=== PATIENT | male | born 1995 | race African-American/Black ===

== ENCOUNTER 2017-12-06 22:10 | Emergency (ER) | payer MEDICAID ==
[~2017-12-06] VITALS: Ht 180.3 cm; Wt 104.0 kg
[2017-12-06] MEDS ORDERED: MORPHINE SULFATE 4 MG/ML CPJ (NOT FOR IM USE) IV ONE (23:00)
[2017-12-06] MEDS ORDERED: TETANUS, DIPHTHERIA, PERTUSSIS VAC/PF 0.5ML (>7YR OLD) IM ONE (23:00)
[2017-12-06] MEDS ORDERED: KETOROLAC 30MG/ML VIAL IV ONE (23:45)
[2017-12-07 01:40] VITALS: BP 126/78
== END 2017-12-07 01:41 | disposition home or self-care (01) ==
LOC: ER 22:10
DX: S91.301A Unspecified open wound, right foot, initial encounter (principal); F12.10 Cannabis abuse, uncomplicated; Z88.9 Allergy status to unspecified drugs, medicaments and biological substances; W33.01XA Accidental discharge of shotgun, initial encounter; Y93.89 Activity, other specified; Y92.89 Other specified places as the place of occurrence of the external cause; Y99.8 Other external cause status
CPT/HCPCS: 73590; 73620; 90471; 90715; 96374; 96375; 99284; J1885; J2270; Z7610

== ENCOUNTER 2018-04-13 00:07 | Emergency (ER) | payer MEDICAID ==
[~2018-04-13] VITALS: Ht 157.5 cm; Wt 98.9 kg
[2018-04-13] MEDS ORDERED: KETOROLAC 60MG/2ML VIAL IM STA (00:50)
[2018-04-13] MEDS ORDERED: LIDOCAINE HCL 1% 20ML VIAL (Pyxis) INJ INFIL ONE (01:00)
[2018-04-13] MEDS ORDERED: CEFTRIAXONE SODIUM 1 G/VIAL IM ONE (01:00)
[2018-04-13 02:30] VITALS: BP 133/87
== END 2018-04-13 02:31 | disposition home or self-care (01) ==
LOC: ER 00:07
DX: G44.89 Other headache syndrome (principal); K02.9 Dental caries, unspecified; F12.10 Cannabis abuse, uncomplicated
CPT/HCPCS: 96372; 99283; J0696; J1885; J3490

== ENCOUNTER 2019-06-23 17:34 | Emergency (ER) | payer MEDICAID ==
[~2019-06-23] VITALS: Ht 180.3 cm; Wt 105.0 kg
[2019-06-23] MEDS ORDERED: HYDROCODONE/ACETAMINOPHEN 5/325MG TABLET PO ONE (22:15)
[2019-06-23] MEDS ORDERED: KETOROLAC 60MG/2ML VIAL IM ONE (22:15)
[2019-06-24 01:05] VITALS: BP 127/74
== END 2019-06-24 01:07 | disposition home or self-care (01) ==
LOC: ER 17:34
DX: S93.401A Sprain of unspecified ligament of right ankle, initial encounter (principal); X50.1XXA Overexertion from prolonged static or awkward postures, initial encounter; Y93.67 Activity, basketball; Y92.9 Unspecified place or not applicable
CPT/HCPCS: 29515; 73600; 96372; 99283; J1885; Z7610

== ENCOUNTER 2020-09-23 14:37 | Emergency (ER) | payer MEDICAID ==
[~2020-09-23] VITALS: Ht 172.7 cm; Wt 108.0 kg
[2020-09-23] MEDS ORDERED: KETOROLAC 30MG/ML VIAL IM ONE (15:00)
[2020-09-23] MEDS ORDERED: BACITRACIN ZINC OINT UDPKT TOP ONE (16:00)
[2020-09-23] MEDS ORDERED: TETANUS, DIPHTHERIA, PERTUSSIS VAC/PF 0.5ML (>7YR OLD) IM ONE (16:00)
[2020-09-23] MEDS ORDERED: ACET-2708 MT (16:29)
[2020-09-23] MEDS ORDERED: NAPR-1176 MT (16:29)
[2020-09-23 17:19] VITALS: BP 128/88
== END 2020-09-23 17:21 | disposition home or self-care (01) ==
LOC: ER 14:37
DX: S93.401A Sprain of unspecified ligament of right ankle, initial encounter (principal); S80.02XA Contusion of left knee, initial encounter; W11.XXXA Fall on and from ladder, initial encounter; Y93.89 Activity, other specified; Y92.9 Unspecified place or not applicable
CPT/HCPCS: 70450; 72125; 72170; 73560; 73590; 73610; 73630; 96372; 99285; J1885

== ENCOUNTER 2021-10-16 06:33 | Emergency (ER) | payer MEDICAID ==
[~2021-10-16] VITALS: Ht 172.7 cm; Wt 98.0 kg
[~2021-10-16 06:33] MED LIST: ACET-2708 MT; NAPR-1176 MT
[2021-10-16] MEDS ORDERED: KETOROLAC 30MG/ML VIAL IV ONE (07:00)
[2021-10-16] MEDS ORDERED: LIDOCAINE HCL/PF 1% 10 MG/ML 5ML VIAL INFIL ONE (07:00)
[2021-10-16] MEDS ORDERED: OXYCODONE HCL/ACETAMINOPHEN 5/325MG TABLET PO ONE (08:00)
[2021-10-16] MEDS ORDERED: T3 PO (09:51)
[2021-10-16] MEDS ORDERED: LIDOCAINE HCL/PF 1% 10 MG/ML 5ML VIAL INFIL NR (10:00)
[2021-10-16 11:00] VITALS: BP 130/73
== END 2021-10-16 12:00 | disposition home or self-care (01) ==
LOC: ER 06:33
DX: S50.02XA Contusion of left elbow, initial encounter (principal); F12.10 Cannabis abuse, uncomplicated; R51.9 Headache, unspecified; Z88.6 Allergy status to analgesic agent; V49.9XXA Car occupant (driver) (passenger) injured in unspecified traffic accident, initial encounter; Y93.89 Activity, other specified; Y92.89 Other specified places as the place of occurrence of the external cause; Y99.8 Other external cause status
CPT/HCPCS: 29505; 70450; 70486; 71045; 72125; 73060; 73070; 73562; 74176; 76705; 93880; 99284; J3490

== ENCOUNTER 2023-05-03 10:08 | Emergency (ER) | payer MEDICAID ==
[~2023-05-03] VITALS: Ht 160 cm; Wt 86.0 kg
[~2023-05-03 10:08] MED LIST changes: +T3 PO
[2023-05-03 10:13] VITALS: BP_DIAS 108; O2SAT 100
[2023-05-03] MEDS ORDERED: ONDANSETRON HCL 4MG/2ML INJ IM ONE (10:45)
[2023-05-03 10:54] LABS: CLARITY URINE TURBID (CLEAR); COLOR URINE YELLOW (YELLOW); GLUCOSE URINE NEGATIVE (NEGATIVE); KETONES URINE NEGATIVE (NEGATIVE); LEUKOCYTE ESTERASE URINE NEGATIVE (NEGATIVE); NITRITE URINE NEGATIVE (NEGATIVE); OCCULT BLOOD URINE 3+ (NEGATIVE); PH URINE 7.5 (4.5-8.0); PROTEIN URINE NEGATIVE (NEGATIVE); SPECIFIC GRAVITY URINE 1.014 (1.005-1.030)
[2023-05-03 11:21] LABS: BASOPHILS % 0.4 % (0.0-2.0); EOSINOPHILS % 1.1 % (0.0-5.0); HEMOGLOBIN. 13.6 g/dL (14.0-18.0); LYMPHOCYTES % 20.7 % (20.0-50.0); MEAN CORPUSCULAR HEMOGLOBIN 29.8 pg (28.0-32.0); MEAN CORPUSCULAR HGB CONC 33.1 g/dL (31.0-37.0); MEAN CORPUSCULAR VOLUME 90.1 fL (80.0-94.0); MONOCYTES % 9.7 % (2.0-8.0); NEUTROPHILS % 68.1 % (40.0-76.0); PLATELET 236 x1000/uL (130-400); RED BLOOD CELL COUNT 4.55 mill/uL (4.7-6.1); RED CELL DISTRIBUTION WIDTH 13.1 % (11.6-14.6)
[2023-05-03 11:27] LABS: RBC URINE TNTC /hpf (0-2); SQUAMOUS EPITHELIAL CELL URINE RARE /lpf (RARE/1+)
[2023-05-03 11:28] LABS: AMORPHOUS SEDIMENT URINE 3+ /lpf; BACTERIA URINE 1+; WBC URINE 0-2 /hpf (0-2)
[2023-05-03 11:44] LABS: ALANINE AMINOTRANSFERASE 62 IU/L (10-49); ALBUMIN 4.5 g/dL (3.2-4.8); ASPARTATE AMINOTRANSFERASE 85 IU/L (<34); BILIRUBIN TOTAL 0.8 mg/dL (0.1-1.0); CALCIUM 9.5 mg/dL (8.7-10.4); CARBON DIOXIDE 24 mEq/L (21-32); CHLORIDE 107 mEq/L (98-107); CREATININE 0.8 mg/dL (0.6-1.3); GLUCOSE 92 mg/dL (70-105); POTASSIUM 3.5 mEq/L (3.5-5.1); PROTEIN TOTAL 8.2 g/dL (6.0-8.3); SODIUM 138 mEq/L (136-145); UREA NITROGEN BLOOD 15 mg/dL (9-23)
[2023-05-03] MEDS ORDERED: MORPHINE SULFATE 10 MG/ML CPJ IM NR ×2 (13:00→13:13)
[2023-05-03] MEDS ORDERED: MORP15TA67 MT ×2 (14:11→14:16)
[2023-05-03] MEDS ORDERED: ONDA4TAB11 PO (14:24)
[2023-05-03 14:58] VITALS: BP_SYST 129; PULSE 63; RESP 18; TEMP 98
== END 2023-05-03 15:00 | disposition home or self-care (01) ==
LOC: ER 10:08
DX: N20.0 Calculus of kidney (principal); R79.89 Other specified abnormal findings of blood chemistry; F12.90 Cannabis use, unspecified, uncomplicated; Z88.6 Allergy status to analgesic agent
CPT/HCPCS: 99285; 74176; 93976; 80053; 81003; 85025; 36415; 76870; 96372; J2405; J2270

== ENCOUNTER 2023-08-23 02:02 | Emergency (ER) | payer MEDICAID ==
[~2023-08-23] VITALS: Ht 170.2 cm; Wt 123.0 kg
[~2023-08-23 02:02] MED LIST changes: +MORP15TA67 MT; +ONDA4TAB11 PO
[2023-08-23 02:04] VITALS: TEMP 98.8; O2SAT 100
[2023-08-23] MEDS: MORPHINE SULFATE 4 MG/ML INJ (FOR IV/IM USE) IV ONE ×2 (03:15→06:23)
[2023-08-23 03:32] LABS: BASOPHILS % 0.7 % (0.0-2.0); EOSINOPHILS % 0.8 % (0.0-5.0); HEMATOCRIT. 40.5 % (42.0-52.0); HEMOGLOBIN. 13.7 g/dL (14.0-18.0); LYMPHOCYTES % 25.8 % (20.0-50.0); MEAN CORPUSCULAR HEMOGLOBIN 33.7 pg (28.0-32.0); MEAN CORPUSCULAR HGB CONC 33.7 g/dL (31.0-37.0); MEAN CORPUSCULAR VOLUME 99.8 fL (80.0-94.0); MEAN PLATELET VOLUME 8.7 fl (7.4-10.4); MONOCYTES % 6.6 % (2.0-8.0); NEUTROPHILS % 66.1 % (40.0-76.0); PLATELET 226 x1000/uL (130-400); RED BLOOD CELL COUNT 4.05 mill/uL (4.7-6.1); RED CELL DISTRIBUTION WIDTH 12.8 % (11.6-14.6); WHITE BLOOD COUNT 10.6 x1000/uL (4.5-11.0)
[2023-08-23 03:37] LABS: INR 0.9; PROTHROMBIN TIME 10.5 sec (9.6-11.0)
[2023-08-23] MEDS ORDERED: TAMSULOSIN HCL 0.4MG SR CAPSULE PO ONE (03:45)
[2023-08-23 04:17] LABS: CHLORIDE 108 mEq/L (98-107); POTASSIUM 3.7 mEq/L (3.5-5.1); SODIUM 142 mEq/L (136-145)
[2023-08-23 04:19] LABS: CALCIUM 10.3 mg/dL (8.7-10.4); CARBON DIOXIDE 24 mEq/L (21-32)
[2023-08-23 04:24] LABS: CREATININE 1.3 mg/dL (0.6-1.3); GLUCOSE 123 mg/dL (70-105); UREA NITROGEN BLOOD 16 mg/dL (9-23)
[2023-08-23 04:26] LABS: ALANINE AMINOTRANSFERASE 30 IU/L (10-49); ALBUMIN 4.6 g/dL (3.2-4.8); ASPARTATE AMINOTRANSFERASE 22 IU/L (<34)
[2023-08-23 04:27] LABS: BILIRUBIN TOTAL 0.7 mg/dL (0.1-1.0); PROTEIN TOTAL 7.4 g/dL (6.0-8.3)
[2023-08-23 04:37] LABS: ETHANOL BLOOD < 10 mg/dL (<10)
[2023-08-23] MEDS: MORPHINE SULFATE 4 MG/ML INJ (FOR IV/IM USE) IV NR (05:02)
[2023-08-23] MEDS: TAMSULOSIN HCL 0.4MG SR CAPSULE PO NR (05:02)
[2023-08-23] MEDS: SODIUM CHLORIDE 0.9% 1,000 ML IV ONE (05:03)
[2023-08-23] MEDS: ONDANSETRON HCL 4MG/2ML INJ IV ONE (05:03)
[2023-08-23] MEDS ORDERED: NAPR-681 MT (06:50)
[2023-08-23] MEDS ORDERED: CEPH500C2 MT (06:50)
[2023-08-23] MEDS ORDERED: TAMS-11 MT (06:50)
[2023-08-23] MEDS ORDERED: HYDR-4001 MT (06:50)
[2023-08-23 07:00] VITALS: BP 139/79; PULSE 65; RESP 18
[2023-08-23 15:57] LABS: *AMPHETAMINES SCREEN URINE NEGATIVE (NEGATIVE); *BARBITURATES SCREEN URINE NEGATIVE (NEGATIVE); *BENZODIAZEPINES SCREEN URINE NEGATIVE (NEGATIVE); *COCAINE SCREEN URINE NEGATIVE (NEGATIVE); CANNABINOID URINE SCREEN PRESUMPTIVE POSITIVE (NEGATIVE); ECSTASY MDMA SCREEN URINE NEGATIVE (NEGATIVE); METHADONE URINE SCREEN NEGATIVE (NEGATIVE); OPIATES URINE SCREEN PRESUMPTIVE POSITIVE (NEGATIVE); PHENCYCLIDINE URINE SCREEN NEGATIVE (NEGATIVE)
== END 2023-08-23 07:15 | disposition home or self-care (01) ==
LOC: ER 02:02
DX: N20.2 Calculus of kidney with calculus of ureter (principal); F12.90 Cannabis use, unspecified, uncomplicated; Z88.6 Allergy status to analgesic agent
CPT/HCPCS: 80053; 80305; 80320; 83690; 85025; 85610; 36415; 74176; 96361; 96374; 96375; 96376; 99285; J2405; J2270; J7030; Z7610; G0480

== ENCOUNTER 2023-11-08 08:38 | Emergency (ER) | payer OTHER ==
[~2023-11-08] VITALS: Ht 188 cm; Wt 109.0 kg
[~2023-11-08 08:38] MED LIST changes: +CEPH500C2 MT; +HYDR-4001 MT; +NAPR-681 MT; +TAMS-11 MT
[2023-11-08 08:39] VITALS: BP 129/73; PULSE 65; RESP 18; TEMP 98.2; O2SAT 97
[2023-11-08] MEDS ORDERED: KETOROLAC 30MG/ML VIAL IV ONE (09:00)
[2023-11-08] MEDS ORDERED: ACETAMINOPHEN 1000MG/100ML 100 ML IV ONE (09:00)
[2023-11-08 09:04] LABS: BASOPHILS % 0.6 % (0.0-2.0); EOSINOPHILS % 3.8 % (0.0-5.0); HEMATOCRIT. 40.2 % (42.0-52.0); HEMOGLOBIN. 13.6 g/dL (14.0-18.0); LYMPHOCYTES % 41.9 % (20.0-50.0); MEAN CORPUSCULAR HEMOGLOBIN 33.2 pg (28.0-32.0); MEAN CORPUSCULAR HGB CONC 33.9 g/dL (31.0-37.0); MEAN CORPUSCULAR VOLUME 98.1 fL (80.0-94.0); MEAN PLATELET VOLUME 8.1 fl (7.4-10.4); NEUTROPHILS % 41.7 % (40.0-76.0); PLATELET 204 x1000/uL (130-400); RED CELL DISTRIBUTION WIDTH 13.2 % (11.6-14.6); WHITE BLOOD COUNT 6.2 x1000/uL (4.5-11.0)
[2023-11-08 09:10] LABS: CHLORIDE 108 mEq/L (98-107); POTASSIUM 3.4 mEq/L (3.5-5.1); SODIUM 139 mEq/L (136-145)
[2023-11-08 09:11] LABS: CARBON DIOXIDE 25 mEq/L (21-32)
[2023-11-08 09:12] LABS: CALCIUM 8.9 mg/dL (8.7-10.4)
[2023-11-08 09:17] LABS: GLUCOSE 103 mg/dL (70-105); UREA NITROGEN BLOOD 9 mg/dL (9-23)
[2023-11-08 09:18] LABS: ALANINE AMINOTRANSFERASE 19 IU/L (10-49); ASPARTATE AMINOTRANSFERASE 16 IU/L (<34)
[2023-11-08 09:19] LABS: ALBUMIN 4.2 g/dL (3.2-4.8); BILIRUBIN DIRECT 0.4 mg/dL (<=3.0); BILIRUBIN TOTAL 1.3 mg/dL (0.1-1.0); PROTEIN TOTAL 6.4 g/dL (6.0-8.3)
== END 2023-11-08 09:45 | disposition left against medical advice (07) ==
LOC: ER 08:50
DX: R10.9 Unspecified abdominal pain (principal); Z79.899 Other long term (current) drug therapy; Z87.19 Personal history of other diseases of the digestive system
CPT/HCPCS: 36415; 80048; 80076; 85025; 99283; J0131

== ENCOUNTER 2024-11-03 17:25 | Emergency (ER) | payer OTHER ==
[~2024-11-03] VITALS: Ht 182.9 cm; Wt 80.0 kg
[~2024-11-03 17:25] MED LIST changes: +ONDA-239 PO; -ONDA4TAB11 PO; -TAMS-11 MT; +TAMS-54 MT
[2024-11-03 17:29] VITALS: O2SAT 100
[2024-11-03] MEDS: SODIUM CHLORIDE 0.9% 1,000 ML IV ONE (18:00)
[2024-11-03] MEDS: ONDANSETRON HCL 4MG/2ML INJ IV STA (18:00)
[2024-11-03] MEDS: KETOROLAC 30MG/ML VIAL IV STA (18:00)
[2024-11-03 19:14] LABS: BASOPHILS % 0.3 % (0.0-2.0); EOSINOPHILS % 0.4 % (0.0-5.0); HEMATOCRIT. 41.2 % (42.0-52.0); HEMOGLOBIN. 13.7 g/dL (14.0-18.0); LYMPHOCYTES % 8.3 % (20.0-50.0); MEAN PLATELET VOLUME 8.2 fl (7.4-10.4); MONOCYTES % 8.4 % (2.0-8.0); NEUTROPHILS % 82.6 % (40.0-76.0); PLATELET 186 x1000/uL (130-400); RED BLOOD CELL COUNT 4.18 mill/uL (4.7-6.1); RED CELL DISTRIBUTION WIDTH 12.9 % (11.6-14.6)
[2024-11-03 19:22] LABS: INR 1.0
[2024-11-03 19:28] LABS: CREATININE 0.9 mg/dL (0.6-1.3)
[2024-11-03 19:29] LABS: UREA NITROGEN BLOOD 8 mg/dL (9-23)
[2024-11-03 19:30] LABS: ASPARTATE AMINOTRANSFERASE 15 IU/L (<34)
[2024-11-03 19:31] LABS: BILIRUBIN DIRECT 0.3 mg/dL (<=3.0); BILIRUBIN TOTAL 1.1 mg/dL (0.1-1.0); PROTEIN TOTAL 6.8 g/dL (6.0-8.3)
[2024-11-03] MEDS: CEFTRIAXONE 1GM/50ML 50 ML IV ONE (19:37)
[2024-11-03] MEDS: SODIUM CHLORIDE 0.9% (SEPSIS BOLUS) IV ONE (21:12)
[2024-11-03 21:53] LABS: CLARITY URINE CLOUDY (CLEAR); COLOR URINE YELLOW (YELLOW); GLUCOSE URINE NEGATIVE (NEGATIVE); KETONES URINE 1+ (NEGATIVE); LEUKOCYTE ESTERASE URINE 2+ (NEGATIVE); NITRITE URINE NEGATIVE (NEGATIVE); OCCULT BLOOD URINE 3+ (NEGATIVE); PH URINE 7.5 (4.5-8.0); PROTEIN URINE 2+ (NEGATIVE); SPECIFIC GRAVITY URINE 1.014 (1.005-1.030); UROBILINOGEN URINE 1.0 E.U./dL (0.2-1.0)
[2024-11-03 22:08] LABS: BACTERIA URINE 2+; SQUAMOUS EPITHELIAL CELL URINE 1+ /lpf (RARE/1+)
[2024-11-03 22:42] VITALS: BP 116/80; PULSE 58; RESP 18; TEMP 36.9; O2SAT 97
== END 2024-11-03 23:21 | disposition short-term general hospital (02) ==
LOC: ER 17:25 → EDBEDREQTM 21:38 → EDBEDREQ 21:38 → ENRESERV 22:15 → CANBEDREQ 23:16 → ER 23:21
DX: R10.9 Unspecified abdominal pain (principal); N13.30 Unspecified hydronephrosis; K76.89 Other specified diseases of liver; Z79.899 Other long term (current) drug therapy; Z79.1 Long term (current) use of non-steroidal anti-inflammatories (NSAID); Z87.442 Personal history of urinary calculi; Z88.6 Allergy status to analgesic agent
CPT/HCPCS: 80076; 80048; 81003; 83605; 83690; 85025; 85610; 87040; 87086; 36415; 84145; 71045; 74176; 96361; 96365; 96375; 99291; J0696; J1885; J2405; J7030; Z7610; A4606